=== PATIENT | female | born 1945 | race Caucasian/White ===

== ENCOUNTER 2023-05-04 10:22 | Emergency (ER) | payer MEDICARE, BC ==
[~2023-05-04] VITALS: Ht 160 cm; Wt 92.0 kg
[2023-05-04] VITALS (7 sets, daily range): BP systolic 146–157; BP diastolic 72–79
[2023-05-04] MEDS ORDERED: TOPROL XL50 MG PO (11:12)
[2023-05-04] MEDS ORDERED: ALDACTONE50 MG PO (11:12)
[2023-05-04 11:20] LABS: BASO% 0.7 % (0-3); EOS% 2.5 % (0-8); HEMATOCRIT 43.1 % (37.0-47.0); HEMOGLOBIN 14.2 g/dl (12.0-16.0); IMMATURE GRANULOCYTES 0.2 % (0.0-5.0); LYMPH% 12.1 % (15-41); MEAN CELL VOLUME 88.7 fL CALC (80.0-100.0); MEAN CORPUSCULAR HGB 29.2 pG CALC (26.0-32.0); MEAN CORPUSCULAR HGB CONC 32.9 g/dL CAL (32.0-36.0); MONO% 6.7 % (2-13); NEUT# 6.63 thou/uL (2.00-7.15); NEUT% 77.8 % (42-76); RED BLOOD COUNT 4.86 mill/uL (4.20-5.60); RED CELL DISTRI WIDTH 12.7 % (11.5-15.5); URINE BILIRUBIN - DIPSTICK Negative (NEGATIVE); URINE BLOOD DIPSTICK Trace-intact (NEGATIVE); URINE GLUCOSE - DIPSTICK Negative (NEGATIVE); URINE KETONE Negative (NEGATIVE); URINE PH 5.5 (4.5-8.0); URINE PROTEIN - DIPSTICK Negative (NEG-TRACE); URINE UROBILINOGEN - DIPSTICK 0.2 E.U./dL (0.2)
[2023-05-04 11:26] LABS: URINE COLOR Yellow; URINE LEUK ESTERASE Large (NEGATIVE); URINE NITRITE - DIPSTICK Positive (Negative)
[2023-05-04 11:27] LABS: URINE BACTERIA MANY hpf; URINE EPITHELIAL CELLS MODERATE EPI/hpf (0-FEW)
[2023-05-04 11:49] LABS: ALBUMIN 4.5 g/dL (3.2-5.0); ALKALINE PHOSPHATASE 74 u/l (38-126); ANION GAP 11 (6-22 (CALC)); BILIRUBIN, TOTAL 1.2 mg/dL (0.02-1.3); BUN 11 mg/dL (8-23); BUN/CREATININE RATIO 17 (12-20 (CALC)); CARBON DIOXIDE 31 mmol/l (22-30); CHLORIDE 105 mmol/l (95-108); CREATININE 0.7 mg/dL (0.5-1.0); GFR FOR AFR.AMER. > 60 ML/MIN (>=60 (CALC)); GFR OTHER RACES > 60 ML/MIN (>=60 (CALC)); LIPASE 68 u/l (23-300); POTASSIUM 4.1 mmol/l (3.5-5.1); SGOT/AST 32 u/l (9-36); SODIUM 143 mmol/l (137-146); TOTAL PROTEIN 7.1 g/dL (6.3-8.2)
[2023-05-04] MEDS ORDERED: ACETAMINOPHEN 325 MG/TAB PO PRN (14:00)
[2023-05-04] MEDS ORDERED: SODIUM CHLORIDE 0.9% 1,000 ML IV PRN (14:00)
[2023-05-04] MEDS ORDERED: MAGNESIUM HYDROXIDE 30 ML UDC PO PRN (14:00)
[2023-05-04] MEDS ORDERED: DiphenhydrAMINE HCL 25 MG CPLT PO ONE (15:30)
[2023-05-04] MEDS ORDERED: ONDANSETRON 4 MG/TAB ODT PO ONE (15:35)
[2023-05-04] MEDS ORDERED: VITAMIN D33000 UNIT PO (15:49)
[2023-05-04] MEDS ORDERED: [UNRECOGNIZED DRUG - OTHER] PO (15:51)
[2023-05-04] MEDS ORDERED: TYLENOL 8 HOUR650 MG PO (15:52)
[2023-05-04] MEDS ORDERED: levoFLOXacin hemihydrate 250 MG/TAB PO SCH (16:00)
[2023-05-04] MEDS ORDERED: ZOFRAN4 MG/TAB PO ×2 (16:32→16:47)
[2023-05-04] MEDS ORDERED: LEVOFLOXACIN250 M1 PO ×2 (16:32→16:47)
--- NOTE | 2023-05-04 17:19 | NUR ---
pt given discharge paperwork, verbalized understanding. pt ambulatory to lobby with
[2023-05-04] MEDS ORDERED: ENOXAPARIN SODIUM 40 MG/0.4 ML SYR SC SCH (21:00)
== END 2023-05-04 17:15 | disposition home or self-care (01) ==
LOC: ED 10:22 → ED-I 12:12 → ED 12:12 → ED-I 13:22 → ED 15:10
PROVIDERS: Family Medicine
DX: N39.0 Urinary tract infection, site not specified (principal); B96.1 Klebsiella pneumoniae [K. pneumoniae] as the cause of diseases classified elsewhere; I10 Essential (primary) hypertension; E78.5 Hyperlipidemia, unspecified; J43.9 Emphysema, unspecified; K59.00 Constipation, unspecified; K57.30 Diverticulosis of large intestine without perforation or abscess without bleeding; Z85.3 Personal history of malignant neoplasm of breast; Z90.12 Acquired absence of left breast and nipple; Z88.0 Allergy status to penicillin; Z88.2 Allergy status to sulfonamides